=== PATIENT | female | born 1965 | race Caucasian/White ===

== ENCOUNTER 2019-01-27 15:34 | Emergency (ER) | payer MEDICARE ==
[~2019-01-27] VITALS: Ht 170.2 cm; Wt 145.4 kg
[~2019-01-27 15:34] MED LIST: DULO-31 PO; HYDR-4383 PO; LIDO700A5 TOP
[2019-01-27] MEDS ORDERED: normal saline 1000ML IV soln IVB ONE (15:40)
[2019-01-27] MEDS ORDERED: morphine 4 MG/ML inj SYRINge IV PRN (15:40)
--- NOTE | 2019-01-27 15:46 | NUR ---
DR ADORNO DISCUSSES PT'S REACTIONS TO MORPHINE AND PT AGREES THAT SHE WILL TAKE MORPHINE TODAY FOR THE PAIN.
[2019-01-27 16:26] LABS: BASOPHILS % (AUTO) 0.4 % (0-1); EOSINOPHILS # (AUTO) 0.1 X10'3 (0-0.9); EOSINOPHILS % (AUTO) 2.5 % (0-6); HEMATOCRIT 33.6 % (35.0-45.0); HEMOGLOBIN 10.6 g/dl (12.0-16.0); LYMPHOCYTES # (AUTO) 0.9 X10'3 (1.1-4.8); LYMPHOCYTES % (AUTO) 17.7 % (21-51); MEAN CORPUSCULAR HEMOGLOBIN 23.1 PG (27.0-31.0); MEAN CORPUSCULAR HGB CONC 31.5 g/dL (33.0-36.5); MEAN CORPUSCULAR VOLUME 73.2 FL (78-98); MEAN PLATELET VOLUME 7.5 FL (7.4-10.4); MONOCYTES # (AUTO) 0.4 X10'3 (0-0.9); MONOCYTES % (AUTO) 7.9 % (2-12); NEUTROPHILS # (AUTO) 3.5 X10'3 (1.8-7.7); NEUTROPHILS % (AUTO) 71.5 % (42-75); PLATELET COUNT 222 X10'3 (140-440); RED BLOOD COUNT 4.59 X10'6 (4.20-5.60); WHITE BLOOD COUNT 4.9 X10'3 (4.5-11.0)
[2019-01-27 16:27] VITALS: BP 153/105
[2019-01-27 16:44] LABS: ALANINE AMINOTRANSFERASE 54 U/L (12-78); ALBUMIN 3.4 G/DL (3.4-5.0); ALKALINE PHOSPHATASE 41 IU/L (46-116); ANION GAP 6 (8-16); ASPARTATE AMINO TRANSFERASE 42 U/L (10-37); BILIRUBIN,TOTAL 0.3 MG/DL (0.1-1.0); BLOOD UREA NITROGEN 13 MG/DL (7-18); CALCIUM 10.5 MG/DL (8.5-10.1); CHLORIDE 104 MMOL/L (99-107); CREATININE 0.81 MG/DL (0.40-0.90); GLUCOSE 96 MG/DL (70-104); LIPASE 62 U/L (73-393); POTASSIUM 3.6 MMOL/L (3.5-5.1); SODIUM 138 MMOL/L (135-145); TOTAL CARBON DIOXIDE 27.7 MMOL/L (24-32); TOTAL PROTEIN 6.9 G/DL (6.4-8.2); eGFR 74 ML/MIN
[2019-01-27 16:50] LABS: CLARITY,URINE SLIGHTLY CLOUDY (Clear); COLOR,URINE STRAW (Yellow); GLUCOSE, URINE NEGATIVE (Neg); KETONES,URINE NEGATIVE (Neg); LEUKOCYTE ESTERASE ,URINE TRACE (Neg); NITRITES, URINE NEGATIVE (Neg); OCCULT BLOOD,URINE NEGATIVE (Neg); PH,URINE 6.5 (4.8-8.0); PROTEIN,URINE NEGATIVE (Neg); URINE HCG NEGATIVE (NEG)
[2019-01-27 16:55] LABS: UA COLLECTION TYPE CLN CATCH MIDSTREAM
[2019-01-27 16:56] LABS: AMORPHOUS URATES 3+; BACTERIA,URINE FEW /HPF (Neg); MUCUS STRANDS NONE SEEN /LPF (Neg); RBC,URINE NONE SEEN /HPF (0-2); RENAL CELLS, URINE FEW /HPF; SQUAMOUS EPITHELIAL CELL,UR FEW /LPF (FEW); WBC,URINE 0-4 /HPF (0-4)
[2019-01-27] MEDS ORDERED: CYCL-1 PO (17:00)
== END 2019-01-27 17:15 | disposition home or self-care (01) ==
LOC: ER 15:34
DX: R10.9 Unspecified abdominal pain (principal); G89.29 Other chronic pain; F32.9 Major depressive disorder, single episode, unspecified; Z88.2 Allergy status to sulfonamides; Z88.6 Allergy status to analgesic agent; Z88.8 Allergy status to other drugs, medicaments and biological substances; Z79.899 Other long term (current) drug therapy; Z98.51 Tubal ligation status; Z87.442 Personal history of urinary calculi
CPT/HCPCS: 36415; 74176; 80053; 81001; 81025; 83690; 85025; 87088; 96374; 99284; J2270; J7030

== ENCOUNTER 2023-12-01 16:41 | Emergency (ER) | payer MEDICARE ==
[~2023-12-01] VITALS: Ht 170.2 cm; Wt 103.6 kg
[~2023-12-01 16:41] MED LIST changes: +CYCL-1 PO
[2023-12-01] MEDS ORDERED: ketorolac trometh. 30mg/ml inj. IM ONE (17:50)
[2023-12-01] MEDS ORDERED: hydrOXYzine 25 MG tablet PO ONE (17:50)
[2023-12-01] MEDS ORDERED: metoprolol tartrate 50mg tablet PO ONE (18:55)
[2023-12-01 19:22] VITALS: BP 177/105; PULSE 68; RESP 18; TEMP 98.4; O2SAT 96
== END 2023-12-01 20:16 | disposition home or self-care (01) ==
LOC: ER 16:42
DX: I10 Essential (primary) hypertension (principal); F41.9 Anxiety disorder, unspecified; G89.29 Other chronic pain; M54.9 Dorsalgia, unspecified; F31.9 Bipolar disorder, unspecified; F17.200 Nicotine dependence, unspecified, uncomplicated; F12.10 Cannabis abuse, uncomplicated
CPT/HCPCS: 96372; 99285; J1885; Q0177

== ENCOUNTER 2024-02-18 21:13 | Emergency (ER) | payer MEDICARE ==
[~2024-02-18] VITALS: Ht 167.6 cm; Wt 95.0 kg
[2024-02-18 21:14] VITALS: BP 138/91; PULSE 76; RESP 20; O2SAT 95
[2024-02-19] MEDS: HYDROmorphone 1 mg/ml syringe IM ONE ×2 (00:43→01:43)
[2024-02-19] MEDS: ketorolac trometh. 30mg/ml inj. IM ONE (01:03)
[2024-02-19] MEDS: ketorolac trometh inj. 60 MG/2 ML VIAL IM ONE (01:03)
[2024-02-19 01:46] VITALS: TEMP 97.1
== END 2024-02-19 01:49 | disposition home or self-care (01) ==
LOC: ER 21:14
DX: M79.604 Pain in right leg (principal); M79.605 Pain in left leg; G89.29 Other chronic pain; M54.9 Dorsalgia, unspecified; I10 Essential (primary) hypertension; M19.90 Unspecified osteoarthritis, unspecified site; F17.200 Nicotine dependence, unspecified, uncomplicated; F12.90 Cannabis use, unspecified, uncomplicated; Z88.2 Allergy status to sulfonamides; Z88.8 Allergy status to other drugs, medicaments and biological substances; Z88.5 Allergy status to narcotic agent; Z79.899 Other long term (current) drug therapy; Z98.51 Tubal ligation status
CPT/HCPCS: 96372; 99284; J1170; J1885

== ENCOUNTER 2024-08-22 13:26 | Emergency (ER) | payer MEDICARE ==
[~2024-08-22] VITALS: Ht 170.2 cm; Wt 100.0 kg
[2024-08-22 13:47] VITALS: BP 150/87; PULSE 73; TEMP 98.2; O2SAT 97
[2024-08-22] MEDS: ketorolac trometh 30MG/ML vial 30 MG/ML VIAL IM STA (16:10)
[2024-08-22 17:08] VITALS: RESP 16
== END 2024-08-22 17:19 | disposition home or self-care (01) ==
LOC: ER 13:27
DX: S30.0XXA Contusion of lower back and pelvis, initial encounter (principal); G89.29 Other chronic pain; M54.50 Low back pain, unspecified; I10 Essential (primary) hypertension; F41.9 Anxiety disorder, unspecified; F32.A Depression, unspecified; Z88.2 Allergy status to sulfonamides; Z79.899 Other long term (current) drug therapy; Z98.51 Tubal ligation status; F12.90 Cannabis use, unspecified, uncomplicated; W19.XXXA Unspecified fall, initial encounter; Y93.89 Activity, other specified; Y92.89 Other specified places as the place of occurrence of the external cause; Y99.8 Other external cause status
CPT/HCPCS: 72131; 96372; 99285; J1885

== ENCOUNTER 2025-01-31 13:35 | Outpatient (CLI) | payer MEDICARE | END 2025-01-31 23:59 | disposition home or self-care (01) | LOC: VAS 13:35 | PROVIDERS: ATTEND Nurse Practitioner | DX: M79.662 Pain in left lower leg (principal); M79.661 Pain in right lower leg; R10.9 Unspecified abdominal pain; E78.5 Hyperlipidemia, unspecified | CPT/HCPCS: 93970 ==

== ENCOUNTER 2025-01-31 22:07 | Emergency (ER) | payer MEDICARE ==
[~2025-01-31] VITALS: Ht 170.2 cm; Wt 99.1 kg
[2025-01-31 22:12] VITALS: BP 131/92; PULSE 88; O2SAT 98
[2025-01-31 23:11] VITALS: RESP 16
[2025-01-31] MEDS: ketorolac trometh 15mg/ml vial 15 MG/ML ML IM ONE (23:11)
[2025-01-31 23:44] VITALS: TEMP 97.8
== END 2025-01-31 23:48 | disposition home or self-care (01) ==
LOC: ER 22:08
DX: S83.92XA Sprain of unspecified site of left knee, initial encounter (principal); S30.0XXA Contusion of lower back and pelvis, initial encounter; I10 Essential (primary) hypertension; M19.90 Unspecified osteoarthritis, unspecified site; F41.9 Anxiety disorder, unspecified; F12.90 Cannabis use, unspecified, uncomplicated; F10.90 Alcohol use, unspecified, uncomplicated; Z88.2 Allergy status to sulfonamides; Z88.5 Allergy status to narcotic agent; Z88.8 Allergy status to other drugs, medicaments and biological substances; Z98.51 Tubal ligation status; Z98.890 Other specified postprocedural states; W07.XXXA Fall from chair, initial encounter; Y93.89 Activity, other specified; Y92.89 Other specified places as the place of occurrence of the external cause; Y99.8 Other external cause status; Y90.9 Presence of alcohol in blood, level not specified
CPT/HCPCS: 72100; 72220; 73560; 96372; 99284; J1885; 93970

== ENCOUNTER 2025-04-27 18:53 | Emergency (ER) | payer MEDICARE ==
[~2025-04-27] VITALS: Ht 170.2 cm; Wt 100.0 kg
[~2025-04-27 18:53] MED LIST changes: +ATOR20TA66 PO; +CLON0.1T PO; -CYCL-1 PO; +CYCL-394 PO; -DULO-31 PO; +DULO60CA59 PO; +ESTR42.510 VG; +GABA-1405 PO; -HYDR-4383 PO; +HYDR50TA46 PO; +LIDO700A32 TOP; -LIDO700A5 TOP; +LISI40TA13 PO; +METO100T7 PO; +NOR5T PO; +OXCA150T14 PO; +OXYC-658 PO; +PANT-47 PO; +TOPI-255 PO; +TRAM100T27 PO; +ZALE10CA PO
--- NOTE | 2025-04-27 19:15 | Physician Documentation ---
History of Present Illness ~ Chief Complaint: Mechanical Fall Stated Complaint: FALL Time Seen by MD: 19:16 OK to notify your PCP?: Yes Primary Medical Doctor: RAMIRO Source: patient Mode of Arrival: POV Exam Limitations: no limitations HPI 60-year-old female presents after a mechanical fall last night in the restroom. She reports that her knees bent forward and her left ankle foot and toes are painful with limited range motion. She took a 5 mg oxycodone 1 hour prior to arrival for her pain. She is also experiencing right side sciatica flare-up which is a chronic issue for which she sees [facility] for treatment. She reports having increased urinary frequency and urgency. She states that she normally has some times of incontinence although these incidences have significantly increased recently. She is wearing a postop shoe to her left foot but is requesting a new 1 as hers is about 15 years old and starting to fall apart. Tetanus within 5 Years?: Yes Medication Reconciliation Allergies: Coded Allergies: metoclopramide (Verified Allergy, Mild, 03/06/25) Sulfa (Sulfonamide Antibiotics) (Verified Allergy, Unknown, 03/06/25) fentanyl (Verified Allergy, Unknown, 03/06/25) morphine (Verified Allergy, Unknown, CONFUSED, 03/06/25) LONG ACTING HAD DURING HER BACK SURGERY, TRIED TO GET OUT OF BED, CONFUSED prochlorperazine (Verified Allergy, Unknown, 03/06/25) Scheduled Amlodipine Besylate (Amlodipine Besylate), 5 MG PO DAILY Atorvastatin Calcium (Atorvastatin Calcium), 40 MG PO DAILY Cyclobenzaprine HCl (Cyclobenzaprine HCl), 1 TAB PO Q8H, (Reported) Duloxetine HCl (Cymbalta), 2 CAP PO DAILY, (Reported) Estradiol (Estradiol), 1 APPLICATOR VG Tuesday & Tuesday, (Reported) Gabapentin (Gabapentin), 2 TAB PO QIDWA, (Reported) Lidocaine (Lidoderm), 1 PATCH TOP DAILY, (Reported) Lisinopril* (Lisinopril*), 1 TAB PO DAILY, (Reported) Metoprolol Succinate* (Toprol Xl*), 1 TAB PO QPM, (Reported) Naproxen (Naproxen), 1 TAB PO Q12H Oxcarbazepine (Oxcarbazepine), 450 MG PO BID Pantoprazole Sodium (PROTONIX tablet), 1 TAB PO DAILY, (Reported) Topiramate (Topiramate), 2 TAB PO BIDBD, (Reported) Scheduled PRN Clonidine Hcl (Clonidine Hcl), 0.1 MG PO DAILY PRN for Anxiety/elevated BP, (Re ported) Hydralazine HCl (Hydralazine HCl), 1 TAB PO Q6H PRN for high blood pressure, (Reported) Oxycodone Hcl IR* (Oxycodone IR*), 1 TAB PO Q6H PRN for pain, (Reported) Tramadol Hcl (Tramadol Hcl Er), 1 TAB PO QDAY PRN PRN for Chronic pain, (Reported) Zaleplon (Zaleplon), 1 CAP PO HSMR1 PRN for sleep, (Reported) Past Medical History Past Medical History: Hypertension, Arthritis, Chronic Pain, Chronic Back Pain, *PSYCH*, Anxiety, Depression Past Surgical History: orthopedic surgeries, tubal ligation Alcohol Use: Sober Drug Use: marijuana Lives with: Alone Lives In: Home Occupation: employed Review of Systems All Other Systems at this time: Reviewed and Negative Physical Exam Vital Signs: RN Vital Signs have been reviewed: Yes, Temperature: 97.8, Source: Temporal, Heart Rate: 72, Respiratory Rate: 20, BP: 127/78, Pulse Oximetry: 97, Weight: 100.000 Oxygen Flow Rate: 0 Pulse Oximetry Reflects: adequate oxygenation Physical Exam General: Alert, no apparent distress. HEENT: PERRL, EOMI, no injection, moist mucous membranes. Neck: Full range of motion. Respiratory: Lungs clear, no respiratory distress. Chest: No accessory muscle use. Cardiovascular: Regular rate and rhythm, no murmurs. Gastrointestinal: Soft, nontender, nondistended. Bowels sounds present. Extremities: Normal range of motion, no deformity. Good CSM and pulses in left foot. Limited range of motion of left toes due to pain. Edema to left ankle. Back: No CVA tenderness. Neurologic: Oriented x4. Psychiatric: Normal mood and affect. Skin: Normal color, warm and dry. No edema, no ecchymosis. Progress Results/Orders Reviewed/noted all lab results: Yes Results/Orders Orders - RANDA MONTGOMERY [employer] Ankle, Complete(3vw Min) (04/27/25 19:11) Toe(S) (04/27/25 19:11) Ortho Orders (04/27/25 ) Completed Orders - RANDA MONTGOMERY [employer] Ankle, Complete(3vw Min) (04/27/25 19:11) Toe(S) (04/27/25 19:11) Urinalysis, Cult If Indicated (04/27/25 19:15) Ketorolac Trometh 30mg/Ml Vial (Toradol (04/27/25 19:40) Medications Received in ER Medications (Trade) Dose Ordered Sig/Shaina Route PRN Reason Start Time Stop Time Status Last Admin Dose Admin (Toradol inj. 30mg/ml) 30 mg ONCE ONCE IM 04/27/25 19:40 04/27/25 19:41 DC 04/27/25 19:54 30 MG Vital Signs 04/27/25 04/27/25 18:58 19:54 Temp 97.8 Pulse 72 Resp 20 18 B/P (MAP) 127/78 Pulse Ox 97 O2 Flow Rate 0 Laboratory Tests Test 04/27/25 19:42 Urine Specimen Description Voided Urine Color Yellow Urine Clarity Clear Urine pH 7.0 Urine Specific Moffit 1.010 Urine Protein Negative Urine Glucose (UA) Negative Urine Ketones Negative Urine Occult Blood Negative Urine Nitrite Negative Urine Bilirubin Negative Urine Urobilinogen 0.2 Urine Leukocyte Esterase Negative Urine Culture Indicated Not ind Volume Urine Centrifuged 10 ml Urine Comment EKG/XRAY/CT/US/VASC/MRI Bone/Soft Tissue X-Ray (Ext.) : Additional Comment left toes x-ray as interpreted by me; no joint effusion, no acute fracture, no soft tissue swelling, no dislocation, or foreign body. left ankle x-ray as interpreted by me; no joint effusion, no acute fracture, no soft tissue swelling, no dislocation, or foreign body. Medical Decision Making Additional info obtained from: old records Findings 60-year-old female who presents with left foot and ankle and toe pain after falling on it when trying to go to the restroom in the middle of the night. She reports having increased urinary frequency including episodes of increased incontinence. Her urinalysis was negative for UTI. She reports drinking excess water due to the heat. Her left toe and ankle and foot x-rays were negative for an acute fracture. We discussed the limitations of the x-ray as sometimes it will not show tiny fractures so she is still having symptoms she should repeat the x-ray in 7-10 days as it may be seen in the healing stages. Her ankle x-ray did show osteopenia so we discussed bringing this up to her primary care provider. She came in with a postop shoe to the left foot and is requesting a new 1 due to her as being 15 years old and falling apart. New postop shoe applied to left foot. She was given Toradol injection during her stay and she had taken an oxycodone prior to arrival. For her chronic sciatica, she should follow up with [facility] for her continued treatment plan. There were no signs of cauda equina and she is able to ambulate well. Follow up with the primary care provider in the next 3 days and return back here for any new or worsening symptoms. She agrees with this plan. Differential Dx:Considerations: Include: Fracture(s), Spine injury, Vascular injury, Contusion(s) Departure Disposition: 01 HOME / SELF CARE / HOMELESS Impression: Primary Impression: Left foot pain Additional Impression: Urinary frequency Condition: Stable Discharge Instructions: Contusion, Fall Prevention in the Home, Adult, [id number], Urinary Frequency, Adult Additional Instructions: Please continue to follow up with DASHA Macias regarding your chronic sciatica. Her urinalysis was negative for UTI. We discussed that there were no fractures seen on your x-rays however sometimes tiny fractures are not seen on the 1st x-ray but can be seen on an x-ray 7-10 days later. The ankle x-ray did show osteopenia so please bring this up to your primary care provider. Follow up with her primary care provider in the next 3 days and return back here for any new or worsening symptoms. You can use naproxen at home for pain relief 500 mg twice daily to help with pain and swelling. Please rest, ice and elevate your foot and wear the postop shoe in the interim. Referrals: NO PRIMARY CARE PROVIDER (PCP) Prescriptions Naproxen (Naproxen) 500 Mg Tablet 1 TAB PO Q12H, #20 TAB Prov: RANDA MONTGOMERY 04/27/25 Education Educated regarding: diagnosis, treatment, prognosis, need for follow up Signature Scribe Signature: . Attestation: Scribed for Randa Montgomery [employer]ized [employer] Captain by Randa Montgomery - STELLA . 04/27/25 21:01 RANDA MONTGOMERY [facility] April 27, 2025 19:15
[2025-04-27] MEDS: ketorolac trometh 30MG/ML vial 30 MG/ML VIAL IM ONE (19:54)
--- NOTE | 2025-04-27 19:54 | RADIOLOGY REPORT ---
[facility]: Frontal view of the left foot and lateral and oblique views of the toe were obtained . COMPARISON: None FINDINGS: No fracture is identified. Joint spaces are maintained. Alignment is anatomic. Soft tissues are withi n normal limits. IMPRESSION: No acute fracture or dislocation is visualized.
[2025-04-27 20:05] LABS: BILIRUBIN,URINE NEGATIVE (Neg); CLARITY,URINE CLEAR (Clear); COLOR,URINE YELLOW (Yellow); GLUCOSE, URINE NEGATIVE (Neg); KETONES,URINE NEGATIVE (Neg); LEUKOCYTE ESTERASE ,URINE NEGATIVE (Neg); NITRITES, URINE NEGATIVE (Neg); OCCULT BLOOD,URINE NEGATIVE (Neg); PROTEIN,URINE NEGATIVE (Neg); UROBILINOGEN,URINE 0.2 E.U/dL (0.2-1.0)
[2025-04-27 20:06] LABS: UA COLLECTION TYPE VOIDED
[2025-04-27] MEDS ORDERED: NAPR-56 PO (20:24)
--- NOTE | 2025-04-27 20:43 | RADIOLOGY REPORT ---
DI ANKLE, COMPLETE(3VW MIN), INDICATION: mech fall TECHNICAL DATA:Frontal , oblique and lateral views were obtained of the left ankle. COMPARISON: None FINDINGS: No fracture is identified. Joint spaces are maintained. Alignment is anatomic. Soft tissues are swo llen. IMPRESSION: No acute fracture or dislocation of the left ankle. Bones are ostepenic.
[2025-04-27 21:13] VITALS: BP 132/82; PULSE 61; RESP 16; TEMP 97.8; O2SAT 99
== END 2025-04-27 21:12 | disposition home or self-care (01) ==
LOC: ER 18:54
DX: M79.672 Pain in left foot (principal); M25.572 Pain in left ankle and joints of left foot; M85.872 Other specified disorders of bone density and structure, left ankle and foot; R35.0 Frequency of micturition; F41.9 Anxiety disorder, unspecified; F32.A Depression, unspecified; F12.90 Cannabis use, unspecified, uncomplicated; I10 Essential (primary) hypertension; M19.90 Unspecified osteoarthritis, unspecified site; Z88.2 Allergy status to sulfonamides; Z88.5 Allergy status to narcotic agent; Z88.8 Allergy status to other drugs, medicaments and biological substances; Z79.899 Other long term (current) drug therapy; Z98.51 Tubal ligation status; Z60.2 Problems related to living alone
CPT/HCPCS: 73610; 73660; 81003; 96372; 99284; J1885; L3260

== ENCOUNTER 2025-05-03 14:43 | Emergency (ER) | payer MEDICARE ==
[~2025-05-03] VITALS: Ht 170.2 cm; Wt 100.4 kg
[~2025-05-03 14:43] MED LIST changes: +NAPR-56 PO
[2025-05-03 14:50] VITALS: BP 187/98; PULSE 77; RESP 16; TEMP 98.2; O2SAT 96
--- NOTE | 2025-05-03 15:21 | RADIOLOGY REPORT ---
CLINICAL INDICATION: Shoulder Pain TECHNIQUE: 2 radiographic views of the right shoulder were obtained. Comparison: None FINDINGS/IMPRESSION: There is no evidence of acute fracture or dislocation. The visualized joint space is well maintained. The alignment is anatomical. There is no radiopaque foreign body.
--- NOTE | 2025-05-03 15:22 | RADIOLOGY REPORT ---
CLINICAL INDICATION: HIP PAIN TECHNIQUE: 1 radiographic views of the pelvis and 2 views of the right hip were obtained. Comparison: None FINDINGS/IMPRESSION: There is no evidence of acute fracture or dislocation. 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
--- NOTE | 2025-05-03 17:24 | Physician Documentation ---
History of Present Illness ~ Chief Complaint: Mechanical Fall Stated Complaint: FALL NO THINNERS Time Seen by MD: 16:37 Primary Medical Doctor: RAMIRO BUTCHRE The patient is seen today with complaints of pain of her right shoulder and right hip area. Patient states she sustained a ground level fall when she was walking around the back of her car by [employer] taking a smoke. States she just simply stumbled and fell and landed on the side of the curb. Patient states she did lately hit the right side of her head or landed on the curb with the right side of her body including her head. Patient denies any blood thinner use or loss of consciousness and currently denies any headache or head pain or any significant scalp pain or trauma. Patient denies any chest pain or shortness of breath or abdominal pain or nausea, vomiting, diarrhea. Or fevers or chills. She has no other concern or complaint at this time. Tetanus within 5 Years?: Yes Medication Reconciliation Allergies: Coded Allergies: metoclopramide (Verified Allergy, Mild, 03/06/25) Sulfa (Sulfonamide Antibiotics) (Verified Allergy, Unknown, 03/06/25) fentanyl (Verified Allergy, Unknown, 03/06/25) morphine (Verified Allergy, Unknown, CONFUSED, 03/06/25) LONG ACTING HAD DURING HER BACK SURGERY, TRIED TO GET OUT OF BED, CONFUSED prochlorperazine (Verified Allergy, Unknown, 03/06/25) Scheduled Amlodipine Besylate (Amlodipine Besylate), 5 MG PO DAILY Atorvastatin Calcium (Atorvastatin Calcium), 40 MG PO DAILY Cyclobenzaprine HCl (Cyclobenzaprine HCl), 1 TAB PO Q8H, (Reported) Duloxetine HCl (Cymbalta), 2 CAP PO DAILY, (Reported) Estradiol (Estradiol), 1 APPLICATOR VG Tuesday & Tuesday, (Reported) Gabapentin (Gabapentin), 2 TAB PO QIDWA, (Reported) Lidocaine (Lidoderm), 1 PATCH TOP DAILY, (Reported) Lisinopril* (Lisinopril*), 1 TAB PO DAILY, (Reported) Metoprolol Succinate* (Toprol Xl*), 1 TAB PO QPM, (Reported) Naproxen (Naproxen), 1 TAB PO Q12H Oxcarbazepine (Oxcarbazepine), 450 MG PO BID Pantoprazole Sodium (PROTONIX tablet), 1 TAB PO DAILY, (Reported) Topiramate (Topiramate), 2 TAB PO BIDBD, (Reported) Scheduled PRN Clonidine Hcl (Clonidine Hcl), 0.1 MG PO DAILY PRN for Anxiety/elevated BP, (Reported) Hydralazine HCl (Hydralazine HCl), 1 TAB PO Q6H PRN for high blood pressure, (Reported) Oxycodone Hcl IR* (Oxycodone IR*), 1 TAB PO Q6H PRN for pain, (Reported) Tramadol Hcl (Tramadol Hcl Er), 1 TAB PO QDAY PRN PRN for Chronic pain, (Reported) Zaleplon (Zaleplon), 1 CAP PO HSMR1 PRN for sleep, (Reported) Past Medical History Past Medical History: Hypertension, Arthritis, Chronic Pain, Chronic Back Pain, *PSYCH*, Anxiety, Depression Past Surgical History: orthopedic surgeries, tubal ligation Alcohol Use: Sober Drug Use: marijuana Lives with: Alone Lives In: Home Occupation: employed Review of Systems Constitutional: Denies: chills, fever, weakness Eyes: Denies: pain, blurred vision ENT: Denies: ear pain, nose pain, throat pain, mouth pain Respiratory: Denies: cough, shortness of breath Cardiovascular: Denies: chest pain, palpitations Gastrointestinal: Denies: abdominal pain, nausea, vomiting Genitourinary: Denies: burning, dysuria Female Genitalia: Denies: vaginal discharge, pelvic pain Neurological: Denies: headache, dizziness Musculoskeletal: Denies: pain, swelling Integumentary: Denies: rash, lesions Allergic/Immunologic: Denies: hives, itching Hematologic/Lymphatic: Denies: no symptoms reported Psychiatric: Denies: depression, anxiety Physical Exam Vital Signs: Temperature: 98.2, Source: Oral, Heart Rate: 77, Respiratory Rate: 16, BP: 187/98, Pulse Oximetry: 96, Weight: 100.400 Oxygen Flow Rate: 0 Physical Exam General: Awake and Alert, no acute distress. HEENT: Conjunctiva pink, Sclera clear, Mucus Membranes moist. Neck: Supple without masses and tenderness. Resp: Unlabored. Lungs clear to auscultation bilaterally. Heart: Regular Rate and rhythm, normal S1 and S2 without murmur, rub or gallop. Musculoskeletal: Patient on exam has some abrasions to her right upper arm and right elbow and has painful but near full range of motion of the right shoulder and right hip. Patient has some mild bruising of her right knee and right hip area. She is neurovascularly intact distally of bilateral upper and lower extremities. Motor function is intact distally. Abdomen: Soft and non tender no organomegaly Extremities: No cyanosis,clubbing or edema. Skin: Warm and Dry. Progress Results/Orders Results/Orders Vital Signs 05/03/25 14:50 Temp 98.2 Pulse 77 Resp 16 B/P (MAP) 187/98 Pulse Ox 96 O2 Flow Rate 0 EKG/XRAY/CT/US/VASC/MRI Bone/Soft Tissue X-Ray (Ext.) : Additional Comment X-ray of right shoulder interpreted by myself today shows no sign of acute fracture, bones in anatomic alignment, no osteolytic or blastic lesions. X-ray interpreted by myself today of right hip shows no sign of acute fracture, bones in anatomic alignment, no osteolytic or blastic lesions. DIAGNOSTIC RADIOLOGY Patient: JOSE RAMOS Medical Record: [id number] : 1965, Age: 60 Sex: Female Location: ER Patient Status: [facility] ER Service Date/Time: 05/03/25 1454 Ordering Physician: INES NEWTON MD Exam: HIP UNILATERAL 2 VIEWS CLINICAL INDICATION: HIP PAIN TECHNIQUE: 1 radiographic views of the pelvis and 2 views of the right hip were obtained. Comparison: None FINDINGS/IMPRESSION: There is no evidence of acute fracture or dislocation. 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 Electronically Signed by:OREN MERA MD Date & Time: 05/03/251518 Dictated by: OREN MERA MD Dictation date and time: 05/03/251518 Primary Care Provider: NO PRIMARY CARE PROVIDER cc: INES NEWTON MD ~ DIAGNOSTIC RADIOLOGY Patient: JOSE RAMOS Medical Record: [id number] [facility] : 1965, Age: 60 Sex: Female Location: ER Patient Status: [facility] ER Service Date/Time: 05/03/251453 Ordering Physician: INES NEWTON MD Exam: SHOULDER, COMPLETE (MIN 2 VWS) CLINICAL INDICATION: Shoulder Pain TECHNIQUE: 2 radiographic views of the right shoulder were obtained. Comparison: None FINDINGS/IMPRESSION: There is no evidence of acute fracture or dislocation. The visualized joint space is well maintained. The alignment is anatomical. There is no radiopaque foreign body. Electronically Signed by:OREN MERA MD Date & Time: 05/03/251518 Dictated by: OREN MERA MD Dictation date and time: 05/03/251508 Primary Care Provider: NO PRIMARY CARE PROVIDER cc: INES NEWTON MD ~ Medical Decision Making Findings The patient is seen today with complaints of pain of her right shoulder and right hip area. Patient states she sustained a ground level fall when she was walking around the back of her car by [employer] taking a smoke. States she just simply stumbled and fell and landed on the side of the curb. Patient states she did lately hit the right side of her head or landed on the curb with the right side of her body including her head. Patient denies any blood thinner use or loss of consciousness and currently denies any headache or head pain or any significant scalp pain or trauma. Patient denies any chest pain or shortness of breath or abdominal pain or nausea, vomiting, diarrhea. Or fevers or chills. She has no other concern or complaint at this time. Patient was given a Toradol injection IM 30 mg upon request today. X-rays of right shoulder and right hip showed no sign of acute fracture. Patient will continue to monitor symptoms closely and follow up with primary care in 2-5 days if no better as needed sooner. 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 Return to ED with any worsening, concerning or changing symptoms. Departure Disposition: HOME / SELF CARE / HOMELESS Impression: Primary Impression: Fall Qualified Codes: W19.XXXA - Unspecified fall, initial encounter Additional Impressions: Shoulder pain, right Qualified Codes: M25.511 - Pain in right shoulder Hip pain, right Condition: Improved Discharge Instructions: Contusion Additional Instructions: Patient was given a Toradol injection IM 30 mg upon request today. X-rays of right shoulder and right hip showed no sign of acute fracture. Patient will continue to monitor symptoms closely and follow up with primary care in 2-5 days if no better as needed sooner. 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 Return to ED with any worsening, concerning or changing symptoms. Referrals: NO PRIMARY CARE PROVIDER (PCP) Signature Scribe Signature: No scribe Attestation: No scribe LOUIS SÁNCHEZ PAC May 03, 2025 17:24
[2025-05-03] MEDS: ketorolac trometh 30MG/ML vial 30 MG/ML VIAL IM STA (17:40)
== END 2025-05-03 17:46 | disposition home or self-care (01) ==
LOC: ER 14:44
DX: M25.511 Pain in right shoulder (principal); M25.551 Pain in right hip; I10 Essential (primary) hypertension; M19.90 Unspecified osteoarthritis, unspecified site; F41.9 Anxiety disorder, unspecified; F32.A Depression, unspecified; F12.90 Cannabis use, unspecified, uncomplicated; F10.90 Alcohol use, unspecified, uncomplicated; Z88.2 Allergy status to sulfonamides; Z88.5 Allergy status to narcotic agent; Z88.8 Allergy status to other drugs, medicaments and biological substances; Z98.51 Tubal ligation status; W01.0XXA Fall on same level from slipping, tripping and stumbling without subsequent striking against object, initial encounter; Y93.01 Activity, walking, marching and hiking; Y92.89 Other specified places as the place of occurrence of the external cause; Y99.8 Other external cause status; Y90.9 Presence of alcohol in blood, level not specified
CPT/HCPCS: 73030; 73502; 96372; 99284; J1885

== ENCOUNTER 2025-09-02 04:56 | Emergency (ER) | payer MEDICARE ==
[~2025-09-02] VITALS: Ht 170.2 cm; Wt 100.0 kg
[~2025-09-02 04:56] MED LIST changes: +LIDO-52 TOP; -LIDO700A32 TOP; -LISI40TA13 PO; +LISI40TA20 PO; -NAPR-56 PO
[2025-09-02 04:58] VITALS: BP 137/84; PULSE 63; TEMP 98; O2SAT 96
--- NOTE | 2025-09-02 07:34 | Physician Documentation ---
Addendum CHIEF COMPLAINT/HPI: Patient is a 60-year-old female with a history of chronic pain who currently takes oxycodone 5 mg, last dose 5 hours ago. She also has tramadol at home. She fell on her left outstretched hand earlier today. REVIEW OF SYSTEMS: Constitutional: Denies chills, fatigue, fever, weight gain or weight loss. HEENT: Denies hearing loss, sinus pressure or visual changes. Respiratory: Denies cough, shortness of breath or wheezing. Cardiovascular: Denies chest pain, pain while walking (claudication), edema or palpitations. Gastrointestinal: Denies abdominal pain, blood in stool, constipation, diarrhea, heartburn, loss of appetite, nausea or vomiting. Genitourinary: Denies painful urination (dysuria), excessive amount of urine (polyuria) or urinary frequency. Metabolic/Endocrine: Denies cold intolerance, heat intolerance, excessive thirst (polydipsia) or excessive hunger (polyphagia). Neurological: Denies dizziness, extremity numbness, extremity weakness, headaches, seizures or tremors. Psychiatric: Denies anxiety or depression. Integumentary: Denies breast discharge, breast lump, hives, mole change(s), rash or skin lesion. Musculoskeletal: Denies back pain, joint pain, joint swelling or neck pain. Hematologic: Denies easily bleeding, easily bruises, lymphedema or issues with blood clots. Immunologic: Denies food allergies or seasonal allergies. PHYSICAL EXAMINATION: Vitals and nursing note reviewed. Constitutional: General: Patient is awake, alert, oriented x 4 in no acute distress and well appearing. Speech is clear and lucid. Appearance: Normal appearance. Patient is not ill-appearing, toxic-appearing or diaphoretic. Neck: Supple, no Kernig or Brudzinski sign. Cardiovascular: Rate and Rhythm: Normal rate and regular rhythm. Heart sounds: No murmur heard. Pulmonary: Effort: No respiratory distress. Breath sounds: No wheezing, rhonchi or rales. Abdominal: General: There is no distension. Palpations: There is no fluid wave, hepatomegaly or mass. Tenderness: There is no abdominal tenderness. There is no guarding. Musculoskeletal: General: The swelling and mild deformity of left wrist. Neurovascular intact. Skin: Coloration: Skin is not jaundiced. Findings: No erythema or rash. Neurological: Mental Status: Patient is alert. MEDICAL DECISION MAKING: There is a fracture of the wrist with mild to moderate displacement. I do not feel that reduction is indicated. I am going to splint the wrist (sugar-tong) and have the patient follow-up in the orthopedic clinic. Departure Disposition: HOME / SELF CARE / HOMELESS Impression: Primary Impression: Wrist fracture, left Condition: Stable Additional Instructions: You have been evaluated for a left wrist fracture. A splint has been applied. Please follow-up in the orthopedic clinic by calling the number provided for an appointment. In the meantime, return here for severe pain or if your hand becomes numb or your fingers develop a dusky color or any other new/unusual symptoms. Referrals: [facility] Education Educated: Patient Educated regarding: diagnosis, treatment, prognosis, need for follow up JENISE SHEPARD MD Sep 02, 2025 07:34
--- NOTE | 2025-09-02 07:38 | RADIOLOGY REPORT ---
INDICATION: RO FRACTURE POST FALL TECHNIQUE: 4 radiographic views of the LEFT wrist were obtained. COMPARISON: None FINDINGS: MINIMALLY DISPLACED DISTAL RADIAL FRACTURE WHICH APPEARS COMMINUTED. NONDISPLACED DISTAL ULNAR FRACTURE. IMPRESSION: MINIMALLY DISPLACED DISTAL RADIAL FRACTURE WHICH APPEARS COMMINUTED. NONDISPLACED DISTAL ULNAR FRACTURE.
[2025-09-02 07:48] VITALS: RESP 16
[2025-09-02] MEDS: ketorolac trometh 30MG/ML vial 30 MG/ML VIAL IM ONE (07:48)
[2025-09-02] MEDS: oxyCODONE/APAP 5-325mg tablet PO ONE (07:48)
== END 2025-09-02 11:20 | disposition home or self-care (01) ==
LOC: ER 04:56
DX: S52.592A Other fractures of lower end of left radius, initial encounter for closed fracture (principal); G89.29 Other chronic pain; X50.1XXA Overexertion from prolonged static or awkward postures, initial encounter; Y93.89 Activity, other specified; Y92.89 Other specified places as the place of occurrence of the external cause; Y99.8 Other external cause status
CPT/HCPCS: 29125; 73110; 96372; 99284; A4565; J1885

== ENCOUNTER 2025-09-03 09:38 | Outpatient (CLI) | payer MEDICARE ==
--- NOTE | 2025-09-03 11:45 | RADIOLOGY REPORT ---
Exam: US ULTRASOUND HEAD NECK Date: 09/03/2025 09:54 AM Clinical History: LOCALIZED SWELLING, MASS AND LUMP, NECK Comparison: None Technique: Targeted sonographic evaluation of the soft tissues of the right neck was obtained utilizing grayscale and color Doppler imaging. Findings/Impression: There is a benign-appearing lymph node in the right neck measuring 0.6 x 0.2 x 0.5 cm. No suspicious sonographic abnormalities in the right neck.
--- NOTE | 2025-09-03 12:27 | RADIOLOGY REPORT ---
EXAM: CT CT CERVICAL SPINE INDICATION: CERVICALGIA TECHNIQUE: Non contrast axial images of the cervical spine have been obtained with coronal and sagittal reformatted images. CT scans at this facility use dose modulation, iterative reconstruction, and/or weight based dosing when appropriate to reduce radiation dose to as low as reasonably achievable. COMPARISON: None FINDINGS: ANATOMY: Straightening of the normal cervical lordosis, which may be seen in the setting of patient positioning versus muscular spasm. Upper thoracic kyphosis. VERTEBRAL BODIES: The vertebral bodies are normal in height and alignment. The dens is intact, the lateral masses of C1 are normally aligned, and the atlantodental interval is normal for age. Multilevel facet arthropathy. SPINAL CANAL: No significant spinal canal stenosis. INTERVERTEBRAL DISCS: No CT findings to suggest traumatic disc herniation or acute hematoma. SOFT TISSUES: There is no prevertebral soft tissue swelling. OTHER: Inconspicuous areas of patchy ground-glass in bilateral upper lobes which is nonspecific and may be related to expiratory phase of imaging versus inconspicuous pulmonary edema. IMPRESSION: 1. No acute cervical spine fracture or malalignment.
== END 2025-09-03 23:59 | disposition home or self-care (01) ==
LOC: RAD 09:38
PROVIDERS: ATTEND Family Medicine
DX: R22.1 Localized swelling, mass and lump, neck (principal); M54.2 Cervicalgia
CPT/HCPCS: 72125; 76536

== ENCOUNTER 2025-09-30 10:15 | Day surgery (SDC) | payer MEDICARE ==
[2025-09-27 11:20] LABS: MEAN PLATELET VOLUME 7.3 FL (7.4-10.4); PRE OP HEMATOCRIT 40.7 % (35.0-45.0); PRE OP HEMOGLOBIN 13.5 g/dL (12.0-16.0); PRE OP PLATELET COUNT 178 X10'3 (140-440); PRE OP WHITE BLOOD COUNT 3.5 10'3 (4.8-10.8); RED CELL DISTRIBUTION WIDTH 17.2 % (11.5-14.5)
--- NOTE | 2025-09-27 11:27 | ELECTROCARDIOGRAPH REPORT ---
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 ALEXANDRIA Morse Measurements Intervals [place] Rate: 56 P: 60 UT: 191 QRS: 38 QRSD: 105 T: 45 QT: 423 QTc: 409 Interpretive Statements A-V dual-paced complexes w/ some inhibition No further analysis attempted due to paced rhythm Electronically Signed On 09-27-2025 14:57:[address] ALEXANDRIA Morse Please click the below link to view image of tracing.
[2025-09-27 11:59] LABS: CREATININE 0.54 MG/DL (0.40-0.90); PRE OP ALT 19 U/L (30-65); PRE OP ANION GAP 6 (8-16); PRE OP AST 20 U/L (10-37); PRE OP BILIRUB, TOTAL 0.5 MG/DL (0.0-1.0); PRE OP GLUCOSE 103 MG/DL (70-104); PRE OP SODIUM 135 MMOL/L (135-145); TOTAL CARBON DIOXIDE 29.8 MMOL/L (24-32); eGFR > 90 ML/MIN
[2025-09-27 12:21] LABS: PRE OP POTASSIUM 3.3 MMOL/L (3.4-5.1)
[2025-09-30] VITALS (17 sets, daily range): BP systolic 96–139; BP diastolic 50–80; PULSE 59–72; RESP 10–17; TEMP 96.5; O2SAT 91–98
[~2025-09-30] VITALS: Ht 170.2 cm; Wt 98.8 kg
[2025-09-30] MEDS: ceFAZolin 2gm/dext,iso 50mL 50 ML IV ONE (05:30)
[~2025-09-30 10:15] MED LIST changes: +ALBU18HF2 INH; -ATOR20TA66 PO; -CLON0.1T PO; -DULO60CA59 PO; +FLUT16SP BOTHNARES; +HYDR-3686 PO; +HYDR25TA4 PO; +KEN0.1O TP; -LIDO-52 TOP; +LUMA42CA4 PO; +NITR0.4T51 SL; -NOR5T PO; +ONDA-243 SL; +OXYB-58 PO; +RIZA-5 PO
[2025-09-30] MEDS: ringers solution, lacted 1,000 ML IV SCH ×2 (10:45→12:24)
[2025-09-30] MEDS ORDERED: BUPIVAcaine/PF 2.5mg/ml (0.25%) 10ml vial ONE (10:59)
[2025-09-30] MEDS ORDERED: LIDOcaine 2% (20mg/ml) 5ml vial ONE ×2 (11:00)
[2025-09-30] MEDS ORDERED: midazolam 1 mg/ML 2ml injection ONE ×2 (11:27→11:28)
[2025-09-30] MEDS ORDERED: ROPIVAcaine 0.5% (5mg/ml) 30ml vial ONE (11:31)
[2025-09-30] MEDS ORDERED: dexamethasone sod phosphate 4mg/ml inj. ONE (12:16)
[2025-09-30] MEDS ORDERED: ondansetron/PF 4mg/2ml inj ONE (12:16)
[2025-09-30] MEDS ORDERED: propofol inj 20 ML IV ONE (12:16)
[2025-09-30] MEDS: ketorolac trometh 30MG/ML vial 30 MG/ML VIAL IV ONE (12:24)
[2025-09-30] MEDS ORDERED: acetaminophen 1,000mg/100ml IV 100 ML IV PRN (12:30)
[2025-09-30] MEDS ORDERED: HYDROmorphone/PF 0.2 MG/ML SYRINGE IV PRN ×2 (12:30)
[2025-09-30] MEDS ORDERED: hydrALAZINE 20mg/ml inj. IV PRN (12:30)
[2025-09-30] MEDS ORDERED: labetalol 20mg/4ml (5mg/ml) syringe IV PRN (12:30)
[2025-09-30] MEDS: ondansetron/PF 4mg/2ml inj IV PRN (13:34)
--- NOTE | 2025-09-30 13:51 | OPERATIVE REPORT ---
Operative Report Providers to ~ Date of Procedure: Sep 30, 2025 Pre-Operative Diagnosis: The intra-articular fracture with displacement left distal radius Post-Operative Diagnosis SAME as PRE-Op Procedure Performed Open reduction internal fixation of the left distal radius fracture 3+ fragments Surgeon: Leif Xiao MD [employer] Manager None Anesthesiologist: Will Colon Type of Anesthesia: Regional Findings: Prosthetics\Implants used: [place] bone bridge standard left plate and screws Estimated Blood Loss: None Specimen Removed: None Description of Procedure: This patient is a 60-year-old woman who suffered a left distal radius fracture one month prior. Her initial films showed good position of the fracture fragments. However over a period of weeks there was noted to be severe shortening and dorsal angulation of the fracture site to an unacceptable degree. Surgery was then recommended on a prompt basis to prevent deformity. The the the patient and agreed to proceed. Risks and benefits were discussed with the patient including but not limited to infection, bleeding, tendon damage, hardware pain and failure to heal as well as stiffness. She agreed to proceed. She was given a block in the operating room and the arm was prepped and draped in usual manner with the tourniquet up high. The incision was made over the flexor carpi radialis with the interval between it and the radial artery to access the distal radius. The pronator was elevated off the distal radius and reflected toward the ulna. Fracture fragments showed some movement but because of the passage of time was quite stiff. We had to utilize a [place] elevator to break loose the healing fracture and to restore the proper alignment of the distal radius. The plate was affixed proximally under fluoro guidance and then the distal fragment was brought up to it in its proper orientation. For distal interlocking screws were placed to stabilize the fracture distally and three screws were placed proximally. Final fluoro imaging showed good position of the fracture and the hardware. The incision was then irrigated and closed in layers. Sterile dressing was applied along with a splint. The tourniquet was released the hand perfused well and she was taken to the recovery room in stable condition. LEIF XIAO Jr., MD Sep 30, 2025 13:50
== END 2025-09-30 15:34 | disposition home or self-care (01) ==
LOC: PAS 10:15
PROVIDERS: ATTEND Orthopaedic Surgery Hand Surgery
DX: S52.572A Other intraarticular fracture of lower end of left radius, initial encounter for closed fracture (principal); E78.5 Hyperlipidemia, unspecified; G43.909 Migraine, unspecified, not intractable, without status migrainosus; G89.29 Other chronic pain; I10 Essential (primary) hypertension; J44.89 Other specified chronic obstructive pulmonary disease; W19.XXXA Unspecified fall, initial encounter; Y93.89 Activity, other specified; Y92.89 Other specified places as the place of occurrence of the external cause; Y99.8 Other external cause status; Z98.890 Other specified postprocedural states; Z96.652 Presence of left artificial knee joint; Z95.0 Presence of cardiac pacemaker
CPT/HCPCS: 25609; 36415; 80053; 82948; 85025; 93005; A4215; A4565; A4615; A4618; A6402; A6449; A7000; C1713; J1100; J2003; J2250; J2405; J2704; J2795; J3490; J7030; J7120; Z7506; Z7508; Z7512; Z7610